=== PATIENT | male | born 1960 | race Caucasian/White ===

== ENCOUNTER 2016-07-13 15:10 | Outpatient (CLI) | payer OTHER | END 2016-07-13 23:00 | LOC: LAB SRH 15:10 | DX: M17.0 Bilateral primary osteoarthritis of knee (principal) | CPT/HCPCS: 92132 ==

== ENCOUNTER 2016-08-12 08:30 | Outpatient (CLI) | payer OTHER ==
--- NOTE | 2016-08-12 11:22 | DIAGNOSTIC IMAGING REPORT ---
PROCEDURE: MR LTD LOWER EXT JOINT-RIGHT INDICATION: Sullivan and Nephew protocol for preop knee replacement. TECHNIQUE: Limited MRI of the knee was performed with high-resolution PD sagittal images. In addition, AP radiographs of the lower extremity were obtained with scanogram markers. Diagnostic interpretation is not provided. IMPRESSION: 1. Preoperative Sullivan and Nephew protocol for knee prosthesis.
== END 2016-08-12 23:00 ==
LOC: XR SRH 08:30 → MRI SRH 09:00 → XR SRH 23:00
DX: M17.11 Unilateral primary osteoarthritis, right knee (principal)

== ENCOUNTER → 2016-08-21 | Outpatient (CLI) | payer OTHER ==
--- NOTE | 2016-08-21 11:49 | DIAGNOSTIC IMAGING REPORT ---
PROCEDURE: MR LTD LOWER EXT JOINT-RIGHT INDICATION: RT KNEE OA,ADD'L VIEWS,NO CHARGE Sullivan and Nephew protocol for preop knee replacement. TECHNIQUE: Limited MRI of the knee was performed with high-resolution PD sagittal images. AP radiographs of the lower extremity with markers had been obtained previously. Diagnostic interpretation is not provided. IMPRESSION: 1. Repeat MR sequence as requested for preoperative Sullivan and Nephew protocol for knee prosthesis.
== END ==
LOC: MRI SRH 10:51
DX: Z01.818 Encounter for other preprocedural examination (principal); M17.11 Unilateral primary osteoarthritis, right knee

== ENCOUNTER 2016-09-28 09:56 | Outpatient (CLI) | payer OTHER ==
--- NOTE | 2016-09-28 10:57 | DIAGNOSTIC IMAGING REPORT ---
PROCEDURE: XR CHEST 2 VIEW INDICATION: PRE OP TECHNIQUE: PA and lateral view. COMPARISON: None. FINDINGS: Poor inspiration but lungs are clear. Cardiovascular structures are normal. Old right clavicle fracture. IMPRESSION: 1. Negative chest.
[2016-10-02] MEDS ORDERED: ASPIRIN ADULT L81 M1 PO (11:08)
[2016-10-02] MEDS ORDERED: ALEVE220 MG PO (11:09)
[2016-10-02] MEDS ORDERED: VITAMIN D-31000 UNIT PO (11:10)
[2016-10-02] MEDS ORDERED: ATORVASTATIN CA40 MG PO (11:10)
[2016-10-02] MEDS ORDERED: HYDROCHLOROTHIA50 MG PO (11:11)
[2016-10-02] MEDS ORDERED: LOSARTAN POTAS100 MG PO (11:11)
[2016-10-02] MEDS ORDERED: METHOCARBAMOL750 MG PO (11:12)
[2016-10-02] MEDS ORDERED: OMEGA 31000 MG PO (11:13)
== END 2016-09-28 23:00 ==
LOC: RT SRH 09:56
DX: Z01.810 Encounter for preprocedural cardiovascular examination (principal); Z01.811 Encounter for preprocedural respiratory examination; Z01.812 Encounter for preprocedural laboratory examination
CPT/HCPCS: 90001; 90004; 90074; 90100; 90155; 91004; 91286; 94060; 95059; 95150

== ENCOUNTER 2016-10-06 06:04 | Inpatient (IN) | payer OTHER ==
[~2016-10-06] VITALS: Ht 172.7 cm; Wt 103.5 kg
[2016-10-06] VITALS (8 sets, daily range): BP systolic 107–140; BP diastolic 62–78
[~2016-10-06 06:04] MED LIST: ALEVE220 MG PO; ASPIRIN ADULT L81 M1 PO; ATORVASTATIN CA40 MG PO; HYDROCHLOROTHIA50 MG PO; LOSARTAN POTAS100 MG PO; METHOCARBAMOL750 MG PO; OMEGA 31000 MG PO; VITAMIN D-31000 UNIT PO
--- NOTE | 2016-10-06 07:02 | NUR ---
PREOP INSTRUCTIONS GIVEN TO PATIENT. QUESTIONS ANSWERED. PATIENT VERBALIZES UNDERSTANDING. CONSENT CONFIRMED. PATIENT MARKED EXTRIMITY. FRANCIS SWANSONE/SCD ON. PATIENT RESTING COMFORTABLY. KB
--- NOTE | 2016-10-06 09:58 | Postoperative Progress Note ---
Postop Progress Note Preoperate Diagnosis: OA right knee Postoperative Diagnosis: Same Surgeon: Bran Cullen MD Anesthesia: General ETT Findings: OA right knee Procedure: Right TKA Complications? No Condition: Stable EBL: 300cc Blood Administered: 0 Specimen(s) removed? Yes Specimen removed/disposition: Bone and tissue right knee Grafts or Implants? Yes Graft/Implant type: Right TKA . (See nursing notes for details of grafts/implants)
--- NOTE | 2016-10-06 11:15 | DIAGNOSTIC IMAGING REPORT ---
PROCEDURE: XR KNEE 1 OR 2 VIEWS - RIGHT INDICATION: post-op right tka TECHNIQUE: Two-views COMPARISON: Bilateral knee films 12/12/2014 FINDINGS: The patient is status post a total knee replacement on the right. The components are in good position. IMPRESSION: 1. Status post right total knee replacement
--- NOTE | 2016-10-06 11:19 | NUR ---
PT IS AWAKE AND ALERT PRIOR D/C FROM PACU. PT DENIES NAUSEA. PT TOLERATES ICE CHIPS WELL. VSS. PT IS WARM AND COMFORTABLE. RIGHT KNEE DRESSING IS CLEAN AND DRY. RIGHT LEG IS ELEVATED ON A PILLOW, ICE BAGS PLACED TO THE KNEE PER MD ORDER. RIGHT KNEE X-RAY DONE IN PACU. MD TALKED TO PT IN PACU. REPORT GIVEN TO THONY BALL.
--- NOTE | 2016-10-06 15:51 | NUR ---
RECEIVED PT FROM PACU AWAKE AND ALERT. C/O SP RIGHT KNEE REPLACEMENT RATED 5/10. DILAUDID IV GIVEN AND EFFECTIVE. MENDEZ WRAP TO KNEE CDI. CAPNOGRAPHY IN PLACE OVERNIGHT. ON 02 3L NC SATURATION 98-99% NO S/S OF RESPIRATORY DISTRESS. FULL SENSATION OF RLE AND HAS SMALL AMOUNT OF ROM TO THE AFFECTED LEG. TOLERATED SOLID DIET WITH NO N/V.
--- NOTE | 2016-10-06 19:04 | NUR ---
LATE NOTE: PT IS RESTING WELL IN BED, DRESSING CDI AND NO PAIN NOTED. RESPIRATORY WNL AND CAPNOGRAPHY IN PLACE. PT IS NOW USING URINAL WITHOUT ISSUE WHILE LAYING ON SIDE IN BED. URINE IS DARK WITH ODOR AND ENCOURAGING PT TO HYDRATE. PT IS ABLE TO MOVE LEG AROUND WIHTOUT ISSUE. WCTM.
--- NOTE | 2016-10-06 20:16 | NUR ---
Pt. is resting in bed at this time. States pain is acceptable at 2/10. CMS intact. Alert with care, cooperative and pleasant. Using urinal and voiding without issues. Call light within reach. TM.
[2016-10-07 02:17] VITALS: BP 118/77
--- NOTE | 2016-10-07 04:54 | NUR ---
Pt. has been resting throughout the night. States his pain has remained 2-3/10, and declines the need for pain medication. R leg elevated on pillow, CMS intact, MENDEZ wrap CDI. Using urinal to void. Call light within reach.
[2016-10-07 07:11] VITALS: BP 111/59
--- NOTE | 2016-10-07 07:52 | NUR ---
RECEIVED PT IN BED, AWAKE, ALERT, ORIENTED, COHERENT, COOPERATIVE. V/S TAKEN AND RECORDED. ASSESSMENT DONE. PT DENIES CHEST PAIN, COMPLAINT ON RT KNEE PAIN 5/10 LEVEL. PAIN MEDS GIVEN. DENIES N/V AT THIS TIME. PLAN OF CARE INFORMED PT. P.T WILL WORK WITH HIME TODAY. (+) ON OAND OFF INEFFECTIVE COUGH " I HAVE ALLERGIES" PT STATES. I.S INSTRUC. NEEDS ATTENDED.
--- NOTE | 2016-10-07 08:17 | Progress Note ---
Subjective General VSS Afeb WBC 13.2 Hgb Mild pain only. No other c/o. Needs to get OOB
--- NOTE | 2016-10-07 08:17 | Progress Note ---
Subjective General VSS Afeb WBC 13.2 Hgb Mild pain only. No other c/o. Needs to get OOB
[2016-10-07] MEDS ORDERED: OXAYDO5 MG PO (08:24)
[2016-10-07] MEDS ORDERED: ASPIRIN325 MG PO (08:25)
[2016-10-07 10:56] VITALS: BP 125/75
--- NOTE | 2016-10-07 13:44 | NUR ---
I discussed with the patient their current medications, possible side effects, and answered questions. LORI
[2016-10-07 14:00] VITALS: BP 112/69
[2016-10-07 18:04] VITALS: BP 122/69
--- NOTE | 2016-10-07 23:02 | NUR ---
VSS. A&OX4. PATIENT AMBULATING IN ROOM. PAIN WELL CONTROLLED. PATIENT STATES HE IS READY FOR DISCHARGE TOMORROW. WCTM.
[2016-10-08 02:25] VITALS: BP 112/62
--- NOTE | 2016-10-08 02:37 | NUR ---
PT A&O X3, ABLE TO MAKE NEEDS KNOWN, PLEASANT AND COOPERATIVE. RLE SURGICAL DRESSING IN PLACE, CDI. STATES MODERATE RLE PAIN, REQUESTED PRN OXYCODONE WHICH IS MANAGING PAIN WELL. FAINT INSPIRATORY AND EXPIRATORY WHEEZES NOTED THROUGHOUT ALL WOOD, ON RA; DENIES SOB. BT PRESENT IN ALL QUADS BUT DENIES BM POST SURGERY, STATES HE HAS REGULAR FLATULENCE. VSS.
[2016-10-08 06:23] VITALS: BP 117/75
--- NOTE | 2016-10-08 07:56 | Progress Note ---
Subjective General VSS Afebrile Bandage is clean and dry. He is having only mild pain and would like to go home. DC home today.
--- NOTE | 2016-10-08 07:56 | Progress Note ---
Subjective General VSS Afebrile Bandage is clean and dry. He is having only mild pain and would like to go home. DC home today.
--- NOTE | 2016-10-08 07:58 | Provider's Discharge Care Plan ---
Problem, Goal, Plan Problem List 1. Knee joint replacement status
--- NOTE | 2016-10-08 07:58 | Provider's Discharge Care Plan ---
Problem, Goal, Plan Problem List 1. Knee joint replacement status
--- NOTE | 2016-10-08 08:00 | NUR ---
RECEIVED PT UP IN THE CHAIR, AWAKE,ALERT, ORIENTED, COHERENT, COOPERATIVE. V/S TAKEN AND RECORDED. ASSESSMENT DONE. PT DENIES CHEST PAIN, CALF PAIN AT THIS TIME. COMPLAINT SI PAIN 6/10 LEVEL. DUE MEDS GIVEN. SEEN BY DR ALVA, WITH ORDERS MADE AND CARRIED OUT. FOR HOME TODAY. WAITING FOR P.T. TO WORK WITH THE PT TODAY. NEEDS ATTENDED.
[2016-10-08 10:33] VITALS: BP 125/76
--- NOTE | 2016-10-08 11:04 | NUR ---
pt supine in bed and agreeable to skilled PT intervention. pt completed supine to sit SBA and sit to stand SBA. pt trialed forearm crutch on left and quad cane on right and ambulated around the bed CGA. pt states he prefers to use FWW and this PT agreed that using the FWW would be best. pt reported he would not be able to use the FWW inside his house as it is too small but that his is in the process of getting a FWW for ambulation outside of the house. pt completed 15ft of ambulation using a FWW. pt safely negotiated 3 steps using both railings as he will be using both railings at home. pt ambulated 75ft back to room using FWW with focus on getting equal step lengths. pt is safe to d/c home with spouse once medically stable.
--- NOTE | 2016-10-08 11:50 | NUR ---
DISCHARGE INSTRUCS., PRESC., PAIN MEDICATION GIVEN. EMPHASIZING ON S/SX OF VTE, PE. INSTRUC TO KEEP USING HIS IS. AND AMBULATION. QUESTIONS AND COCNERSN ASWERED. AT 1205, PT WENT HOME. ASSISTED BY MS LUNA TO THE LOBBY VIA WHEELCHAIR.
== END 2016-10-08 12:15 | disposition home health service (06) | DRG 470 ==
LOC: SCU SRH 06:04 → U SRH 07:30 → ACUTE2 SRH 11:05
PROVIDERS: ADMIT Orthopaedic Surgery
PROC: 0SRC0J9 Replacement of Right Knee Joint with Synthetic Substitute, Cemented, Open Approach (ICD-10-PCS; principal; 2016-10-06 07:30)
DX: M17.0 Bilateral primary osteoarthritis of knee (principal); I10 Essential (primary) hypertension; E78.5 Hyperlipidemia, unspecified; E78.1 Pure hyperglyceridemia